=== PATIENT | female | born 1955 | race Caucasian/White ===

== ENCOUNTER 2020-08-11 11:51 | Emergency (ER) | payer OTHER, MEDICARE ==
[2020-08-11 13:22] LABS: PTT 31.4 sec (22.9-36.1); Prothrombin Time 13.5 sec (12.0-14.7)
[2020-08-11 13:23] LABS: #Basophils 0.1 thou/uL (0.0-0.2); #Eosinphils 0.1 thou/uL (0.0-0.7); #Lymphocytes 0.9 thou/uL (1.20-3.40); #Monocytes 0.3 thou/uL (0.11-0.59); #Neutrophils 4.4 thou/uL (1.40-6.50); %Eosinophils 1.4 % (0.0-10.0); %Lymphocytes 15.3 % (21.0-51.0); %Monocytes 5.7 % (0.0-10.0); %Neutrophils 76.7 % (42.0-75.0); Hemoglobin 7.9 g/dL (12.0-16.0); Mean Corpuscular HGB CONC 29.3 g/dL (32.0-36.0); Mean Corpuscular Hemoglobin 19.2 pg (27.0-31.0); Mean Corpuscular Volume 65.5 fL (78.0-98.0); Platelet Count 258 thou/uL (130-400); RBC Distribution Width 16.6 % (11.5-14.5); Red Blood Cell (RBC) Count 4.13 mill/uL (4.20-5.40); White Blood Cell (WBC) Count 5.8 thou/uL (4.8-10.8)
[2020-08-11 13:34] LABS: ALT (SGPT) 7 U/L (8-55); AST (SGOT) 17 U/L (5-34); Albumin 4.2 g/dL (3.4-4.8); Alkaline Phosphatase 97 U/L (40-110); Anion Gap 12 mmol/L (10-20); BUN (Urea Nitrogen) 22 mg/dL (9.8-20.1); Bilirubin, Total 0.4 mg/dL (0.2-1.2); Calc. Creatinine Clearance 0 mL/min (70-130); Calcium 9.2 mg/dL (7.8-10.44); Carbon Dioxide 25 mmol/L (23-31); Chloride 108 mmol/L (98-107); Estimated GFR-MDRD 66; Globulin 2.9 g/dL (2.4-3.5); Glucose 132 mg/dL (80-115); Potassium 4.8 mmol/L (3.5-5.1); Protein, Total 7.1 g/dL (6.0-8.3); Sodium 140 mmol/L (136-145)
[2020-08-11 13:49] LABS: Elliptocytes SLIGHT = 2-5 cells (100X) (0-1/hpf); Hypochromia SLIGHT = 6-15 cells (100X) (0-5/hpf); MDiff Complete? YES; Microcytosis MODERATE=15-30 cells (100X) (0-5/hpf); Ovalocytes SLIGHT = 2-5 cells (100X) (0-1/hpf); Platelet Morphology Comment Appears Adequate; Polychromasia SLIGHT = 2-3 cells (100X) (0-2/hpf); Schistocytes SLIGHT = 2-5 cells (100X) (0-1/hpf); Target Cells SLIGHT = 2-5 cells (100X) (0-1/hpf); Tear Drops SLIGHT = 2-5 cells (100X) (0-1/hpf)
== END 2020-08-11 17:18 | disposition home or self-care (01) ==
LOC: ERS 11:51
DX: D50.9 Iron deficiency anemia, unspecified (principal); Z79.899 Other long term (current) drug therapy
CPT/HCPCS: 36415; 80053; 85025; 85610; 85730; 86850; 86900; 86901; 99283

== ENCOUNTER 2022-12-02 15:25 | Observation (INO) | payer MEDICARE, OTHER ==
[2022-12-02] MEDS ORDERED: Morphine 4 MG/ML VIAL ONE (15:53)
[2022-12-02] MEDS ORDERED: Famotidine/PF 20 mg/2ml Vial ONE (15:53)
[2022-12-02 15:58] LABS: #Eosinphils 0.2 thou/uL (0.0-0.7); #Lymphocytes 1.6 thou/uL (1.20-3.40); #Monocytes 0.5 thou/uL (0.11-0.59); #Neutrophils 5.2 thou/uL (1.40-6.50); %Basophils 0.4 % (0.0-1.0); %Eosinophils 2.1 % (0.0-10.0); %Lymphocytes 21.5 % (21.0-51.0); %Monocytes 6.8 % (0.0-10.0); %Neutrophils 69.1 % (42.0-75.0); Hemoglobin 10.1 g/dL (12.0-16.0); Mean Corpuscular Hemoglobin 21.6 pg (27.0-31.0); Mean Corpuscular Volume 69.9 fl (78.0-98.0); Mean Platelet Volume 10.5 fL (7.4-10.4); Platelet Count 301 10x3/uL (130-400); RBC Distribution Width 16.3 % (11.5-14.5); Red Blood Cell (RBC) Count 4.68 mill/uL (4.20-5.40); White Blood Cell (WBC) Count 7.5 10x3/uL (4.8-10.8)
[2022-12-02 16:12] LABS: Hypochromia SLIGHT = 6-15 cells (100X) (0-5/hpf); MDiff Complete? YES; Microcytosis SLIGHT = 6-15 cells (100X) (0-5/hpf); Ovalocytes SLIGHT = 2-5 cells (100X) (0-1/hpf); Platelet Morphology Comment Appears Adequate; Polychromasia SLIGHT = 2-3 cells (100X) (0-2/hpf)
[2022-12-02 16:16] LABS: ALT (SGPT) Less than 7 U/L (8-55); AST (SGOT) 14 U/L (5-34); Albumin 3.4 g/dL (3.4-4.8); Alkaline Phosphatase 64 U/L (40-110); Anion Gap 15 mmol/L (10-20); BUN (Urea Nitrogen) 23 mg/dL (9.8-20.1); Bilirubin, Total 0.3 mg/dL (0.2-1.2); Calc. Creatinine Clearance 0 mL/min (70-130); Calcium 8.8 mg/dL (7.8-10.44); Carbon Dioxide 20 mmol/L (23-31); Chloride 107 mmol/L (98-107); Estimated GFR 88; Globulin 3.1 g/dL (2.4-3.5); Glucose 90 mg/dL (80-115); Lipase 30 U/L (8-78); Potassium 4.3 mmol/L (3.5-5.1); Protein, Total 6.5 g/dL (5.8-8.1); Sodium 138 mmol/L (136-145)
[2022-12-02] MEDS ORDERED: Nitroglycerin 0.4 MG TAB 1 EACH ONE (16:38)
[2022-12-02] MEDS ORDERED: Lidocaine Viscous Sol 2% 15 ml UD Cup ONE (16:52)
[2022-12-02] MEDS ORDERED: Mag-Al 1200 mg/1200 mg/30 ML UDCUP ONE (16:52)
[2022-12-02 17:38] LABS: SARS-CoV-2 NAA Rapid Test DETECTED (NotDetected)
[2022-12-02] MEDS ORDERED: Acetaminophen 325 MG TAB PO PRN (19:15)
[2022-12-02] MEDS ORDERED: Ondansetron PF 4 MG/2 ML Vial IVP PRN (19:15)
[2022-12-02] MEDS ORDERED: Ondansetron ODT 4 MG TAB SL PRN (19:15)
[2022-12-02 19:16] LABS: Troponin I Less than 0.010 ng/mL (< 0.028)
[2022-12-02 21:24] VITALS: BMI 27.2
[2022-12-02 22:20] LABS: Troponin I Less than 0.010 ng/mL (< 0.028)
[2022-12-03 06:10] LABS: Mean Corpuscular HGB CONC 30.3 g/dL (32.0-36.0); Mean Corpuscular Volume 69.4 fl (78.0-98.0); Mean Platelet Volume 10.9 fL (7.4-10.4); Platelet Count 274 10x3/uL (130-400); RBC Distribution Width 16.2 % (11.5-14.5); Red Blood Cell (RBC) Count 4.28 mill/uL (4.20-5.40); White Blood Cell (WBC) Count 7.3 10x3/uL (4.8-10.8)
[2022-12-03 06:29] LABS: #Basophils 0.1 thou/uL (0.0-0.2); #Eosinphils 0.2 thou/uL (0.0-0.7); #Lymphocytes 1.3 thou/uL (1.20-3.40); #Monocytes 0.4 thou/uL (0.11-0.59); #Neutrophils 5.3 thou/uL (1.40-6.50); %Basophils 0.9 % (0.0-1.0); %Eosinophils 2.5 % (0.0-10.0); %Neutrophils 72.6 % (42.0-75.0); Hypochromia SLIGHT = 6-15 cells (100X) (0-5/hpf); MDiff Complete? YES; Microcytosis SLIGHT = 6-15 cells (100X) (0-5/hpf)
[2022-12-03 06:38] LABS: Anion Gap 11 mmol/L (10-20); BUN (Urea Nitrogen) 21 mg/dL (9.8-20.1); Calc. Creatinine Clearance 87 mL/min (70-130); Calcium 8.7 mg/dL (7.8-10.44); Carbon Dioxide 25 mmol/L (23-31); Cardiac Risk 3.3 (Less than 4.5); Chloride 106 mmol/L (98-107); Cholesterol 233 mg/dl (< 200 Desired); Estimated GFR 95; Glucose 91 mg/dL (80-115); HDL Cholesterol 70 mg/dL (>60 Neg Risk); LDL Cholesterol, Calculated 141 mg/dL; Potassium 4.6 mmol/L (3.5-5.1); Sodium 137 mmol/L (136-145); Triglycerides 108 mg/dL (Less than 150)
[2022-12-03 08:55] VITALS: TEMP 98.1
[2022-12-03] MEDS ORDERED: Aspirin Chewable 81 MG TAB PO SCH (09:00)
[2022-12-03] MEDS ORDERED: Escitalopram Oxalate 10 mg Tablet PO SCH (09:00)
[2022-12-03 12:02] VITALS: BP 161/67
[2022-12-03] MEDS ORDERED: Non-Formulary Item 1 EACH (Polyethylene Glycol 3350 [Miralax] 119 GM Bottle) PO PRN (12:10)
[2022-12-03] MEDS ORDERED: RIZATRIPTAN BENZOATE 10 MG PO PRN (12:10)
[2022-12-03] MEDS ORDERED: Polyethylene Glycol 3350 17 GM Packet PO PRN (12:25)
[2022-12-03] MEDS ORDERED: SUMAtriptan Succinate 50 MG TAB PO PRN (12:28)
[2022-12-03] MEDS ORDERED: Non-Formulary Item 1 EACH (Buspirone Hcl [Buspirone Hcl] 15 MG Tablet) PO SCH (21:00)
[2022-12-03] MEDS ORDERED: Amitriptyline HCl 25 MG TAB PO SCH (21:00)
[2022-12-03] MEDS ORDERED: busPIRone HCl 5 MG TAB PO SCH (21:00)
[2022-12-04] MEDS ORDERED: Sertraline 25 MG TAB PO SCH (09:00)
[2022-12-04] MEDS ORDERED: ESTROPIPATE 1.5 MG PO SCH (09:00)
== END 2022-12-03 14:44 | disposition home or self-care (01) ==
LOC: ERS 15:25 → 2NO 18:02
PROVIDERS: ADMIT Family Medicine; ATTEND Family Medicine
DX: R07.89 Other chest pain (principal); U07.1 COVID-19; R06.09 Other forms of dyspnea; I08.8 Other rheumatic multiple valve diseases; Q21.10 Atrial septal defect, unspecified; I31.39 Other pericardial effusion (noninflammatory); R41.0 Disorientation, unspecified; R01.1 Cardiac murmur, unspecified; I11.9 Hypertensive heart disease without heart failure; E78.00 Pure hypercholesterolemia, unspecified; J45.909 Unspecified asthma, uncomplicated; Z79.899 Other long term (current) drug therapy; Z88.1 Allergy status to other antibiotic agents; Z88.8 Allergy status to other drugs, medicaments and biological substances
CPT/HCPCS: 0240U; 71045; 80048; 80053; 80061; 83690; 83880; 84484 ×2; 85025 ×2; 93005; 93306; 94760 ×2; 96374; 96375; 99285; 36415; G0378; J2270; S0028

== ENCOUNTER 2023-01-13 11:07 | Inpatient (IN) | payer MEDICARE ==
[2023-01-13 12:05] LABS: #Eosinphils 0.1 thou/uL (0.0-0.7); #Lymphocytes 1.1 thou/uL (1.20-3.40); #Monocytes 0.5 thou/uL (0.11-0.59); #Neutrophils 5.5 thou/uL (1.40-6.50); %Basophils 0.5 % (0.0-1.0); %Eosinophils 1.5 % (0.0-10.0); %Lymphocytes 14.8 % (21.0-51.0); %Monocytes 6.8 % (0.0-10.0); %Neutrophils 76.4 % (42.0-75.0); Hemoglobin 8.8 g/dL (12.0-16.0); Mean Corpuscular HGB CONC 31.1 g/dL (32.0-36.0); Mean Corpuscular Hemoglobin 21.5 pg (27.0-31.0); Mean Platelet Volume 10.2 fL (7.4-10.4); Platelet Count 290 10x3/uL (130-400); RBC Distribution Width 15.6 % (11.5-14.5); Red Blood Cell (RBC) Count 4.08 mill/uL (4.20-5.40); White Blood Cell (WBC) Count 7.2 10x3/uL (4.8-10.8)
[2023-01-13] MEDS ORDERED: Aspirin Chewable 81 MG TAB ONE (12:12)
[2023-01-13] MEDS ORDERED: Albuterol 200 PUFF (6.7GM INHALER) ONE (12:22)
[2023-01-13 12:29] LABS: ALT (SGPT) Less than 7 U/L (8-55); AST (SGOT) 12 U/L (5-34); Albumin 3.3 g/dL (3.4-4.8); Alkaline Phosphatase 67 U/L (40-110); Anion Gap 10 mmol/L (10-20); BUN (Urea Nitrogen) 20 mg/dL (9.8-20.1); Bilirubin, Total 0.3 mg/dL (0.2-1.2); Calc. Creatinine Clearance 0 mL/min (70-130); Calcium 8.7 mg/dL (7.8-10.44); Carbon Dioxide 25 mmol/L (23-31); Chloride 106 mmol/L (98-107); Estimated GFR 85; Glucose 97 mg/dL (80-115); Lipase 27 U/L (8-78); Potassium 4.8 mmol/L (3.5-5.1); Protein, Total 6.3 g/dL (5.8-8.1); Sodium 136 mmol/L (136-145)
[2023-01-13 14:46] LABS: Troponin I Less than 0.010 ng/mL (< 0.028)
[2023-01-13] MEDS ORDERED: Ondansetron ODT 4 MG TAB PO PRN (15:45)
[2023-01-13] MEDS ORDERED: Ondansetron PF 4 MG/2 ML Vial IVP PRN (15:45)
[2023-01-13] MEDS ORDERED: Acetaminophen 325 MG TAB PO PRN (15:45)
[2023-01-13] MEDS ORDERED: Nitroglycerin 0.4 MG TAB (25 Tab Bottle) SL PRN (15:46)
[2023-01-13 16:04] LABS: Bilirubin Negative (Negative); Blood, Urine Negative (Negative); Clarity Clear (Clear); Glucose, Urine (Dipstick) Normal (Negative); Ketone, Urine Negative (Negative); Leukocyte Negative Leu/uL (Negative); Nitrite Negative (Negative); Protein, Urine (Dipstick) Negative (Neg-Trace); Specific Gravity, Urine 1.012 (1.002-1.036); Urobilinogen Normal mg/dL (Less than 2)
[2023-01-13] MEDS ORDERED: Polyethylene Glycol 3350 17 GM Packet PO PRN (16:05)
[2023-01-13 16:30] VITALS: BMI 28.8
[2023-01-13 17:46] LABS: Troponin I Less than 0.010 ng/mL (< 0.028)
[2023-01-13] MEDS: busPIRone HCl 10 MG TAB PO SCH (20:52)
[2023-01-13] MEDS: Amitriptyline HCl 25 MG TAB PO SCH (20:53)
[2023-01-14 04:46] LABS: #Basophils 0.1 thou/uL (0.0-0.2); #Lymphocytes 1.2 thou/uL (1.20-3.40); #Monocytes 0.5 thou/uL (0.11-0.59); #Neutrophils 4.1 thou/uL (1.40-6.50); %Basophils 1.2 % (0.0-1.0); %Eosinophils 0.8 % (0.0-10.0); %Lymphocytes 20.3 % (21.0-51.0); %Monocytes 8.2 % (0.0-10.0); %Neutrophils 69.5 % (42.0-75.0); Hemoglobin 8.6 g/dL (12.0-16.0); Mean Corpuscular HGB CONC 30.3 g/dL (32.0-36.0); Mean Corpuscular Hemoglobin 20.7 pg (27.0-31.0); Mean Corpuscular Volume 68.4 fl (78.0-98.0); Mean Platelet Volume 9.7 fL (7.4-10.4); Platelet Count 267 10x3/uL (130-400); RBC Distribution Width 15.5 % (11.5-14.5); Red Blood Cell (RBC) Count 4.13 mill/uL (4.20-5.40); White Blood Cell (WBC) Count 5.8 10x3/uL (4.8-10.8)
[2023-01-14 05:10] LABS: Anion Gap 11 mmol/L (10-20); BUN (Urea Nitrogen) 17 mg/dL (9.8-20.1); Calc. Creatinine Clearance 88 mL/min (70-130); Calcium 8.6 mg/dL (7.8-10.44); Carbon Dioxide 22 mmol/L (23-31); Chloride 109 mmol/L (98-107); Estimated GFR 91; Glucose 104 mg/dL (80-115); Potassium 4.2 mmol/L (3.5-5.1); Sodium 138 mmol/L (136-145)
[2023-01-14] MEDS ORDERED: RIZATRIPTAN BENZOATE 10 MG PO PRN (07:56)
[2023-01-14] MEDS ORDERED: SUMAtriptan Succinate 50 MG TAB PO PRN (08:02)
[2023-01-14] MEDS: Escitalopram Oxalate 10 mg Tablet PO SCH (08:29)
[2023-01-14] MEDS: busPIRone HCl 10 MG TAB PO SCH ×2 (08:29→20:46)
[2023-01-14] MEDS: Estradiol 1 MG TAB PO SCH (08:29)
[2023-01-14] MEDS ORDERED: Communication Order-Pharmacy FS SCH (08:45)
[2023-01-14] MEDS ORDERED: Sertraline 25 MG TAB PO SCH (09:00)
[2023-01-14] MEDS ORDERED: GLYCOPYRROLATE/PF 0.2 MG/ML VIAL ONE (10:57)
[2023-01-14] MEDS ORDERED: PROPOFOL 20 ML ONE (10:57)
[2023-01-14] MEDS ORDERED: Glycopyrrolate 0.2 MG/ML 5 ML SYRINGE ONE (10:59)
[2023-01-14] MEDS ORDERED: PROPOFOL 200 MG/20 ML VIAL ONE (10:59)
[2023-01-14] MEDS: Amitriptyline HCl 25 MG TAB PO SCH (20:46)
[2023-01-15] MEDS: Estradiol 1 MG TAB PO SCH (06:17)
[2023-01-15] MEDS: busPIRone HCl 10 MG TAB PO SCH ×2 (06:17→21:08)
[2023-01-15] MEDS: Escitalopram Oxalate 10 mg Tablet PO SCH (06:17)
[2023-01-15] MEDS ORDERED: Lidocaine 1% (PF) 30 ML VIAL ONE (06:22)
[2023-01-15] MEDS ORDERED: fentaNYL 50 mcg/mL 1 mL Vial ONE (07:44)
[2023-01-15] MEDS ORDERED: Midazolam HCl 2 mg/2 ml Vial ONE (07:44)
[2023-01-15 08:15] LABS: Actual Bicarbonate (HCO3a) 21.5 mEq/L (22-28); CO2 Tension 35.8 mmHg (35.0-45.0); Calcium, Ionized (arterial) 1.14 mmol/L (1.12-1.30); Carboxyhemoglobin (COHb) 1.2 gm% (0.0-3.0); Hemoglobin (Hb) 9.1 g/dL (12.0-16.0); O2 Tension (PaO2), arterial 78.3 mmHg (> 80.0); Potassium - ABG Lab 3.86 mmol/L (3.70-5.30)
[2023-01-15 08:18] LABS: Puncture Site Arterial Line
[2023-01-15 08:29] LABS: Site RA; Site RV
[2023-01-15 08:30] LABS: Site IVC
[2023-01-15 08:31] LABS: Site PA
[2023-01-15] MEDS ORDERED: Iopamidol 370 76% 100 ML VIAL ONE (09:10)
[2023-01-15] MEDS: Amitriptyline HCl 25 MG TAB PO SCH (21:08)
[2023-01-16 05:22] LABS: Hemoglobin 8.2 g/dL (12.0-16.0); Mean Corpuscular HGB CONC 29.8 g/dL (32.0-36.0); Mean Corpuscular Hemoglobin 20.7 pg (27.0-31.0); Mean Corpuscular Volume 69.3 fl (78.0-98.0); Mean Platelet Volume 9.6 fL (7.4-10.4); Platelet Count 300 10x3/uL (130-400); RBC Distribution Width 15.7 % (11.5-14.5); Red Blood Cell (RBC) Count 3.97 mill/uL (4.20-5.40); White Blood Cell (WBC) Count 5.5 10x3/uL (4.8-10.8)
[2023-01-16 05:35] LABS: Anion Gap 9 mmol/L (10-20); BUN (Urea Nitrogen) 17 mg/dL (9.8-20.1); Calc. Creatinine Clearance 91 mL/min (70-130); Calcium 8.6 mg/dL (7.8-10.44); Carbon Dioxide 24 mmol/L (23-31); Chloride 111 mmol/L (98-107); Estimated GFR 94; Glucose 99 mg/dL (80-115); Potassium 4.6 mmol/L (3.5-5.1); Sodium 139 mmol/L (136-145)
[2023-01-16 08:11] VITALS: BP 119/58; TEMP 98.8
[2023-01-16] MEDS ORDERED: Ferrex 150 Plus (iron poly cmplx) PO SCH (09:00)
[2023-01-16] MEDS ORDERED: Cyanocobalamin (Vitamin B-12) 1,000 MCG TAB PO SCH (09:00)
[2023-01-16] MEDS: Escitalopram Oxalate 10 mg Tablet PO SCH (09:45)
[2023-01-16] MEDS: busPIRone HCl 10 MG TAB PO SCH (09:45)
[2023-01-16] MEDS: Estradiol 1 MG TAB PO SCH (09:45)
== END 2023-01-16 10:12 | disposition home or self-care (01) | DRG 287 ==
LOC: ERS 11:07 → 2SW 14:02 → OBSVTOIN 01-14 13:33 → 2SW 01-15 12:24
PROVIDERS: ADMIT Internal Medicine; ATTEND Internal Medicine
PROC: B24BZZ4 Ultrasonography of Heart with Aorta, Transesophageal (ICD-10-PCS; principal; 2023-01-14)
PROC: 4A023N8 Measurement of Cardiac Sampling and Pressure, Bilateral, Percutaneous Approach (ICD-10-PCS; 2023-01-15)
PROC: B2111ZZ Fluoroscopy of Multiple Coronary Arteries using Low Osmolar Contrast (ICD-10-PCS; 2023-01-15)
PROC: B2161ZZ Fluoroscopy of Right and Left Heart using Low Osmolar Contrast (ICD-10-PCS; 2023-01-15)
DX: Q21.10 Atrial septal defect, unspecified (principal); K51.90 Ulcerative colitis, unspecified, without complications; I70.0 Atherosclerosis of aorta; I08.1 Rheumatic disorders of both mitral and tricuspid valves; E78.5 Hyperlipidemia, unspecified; J45.909 Unspecified asthma, uncomplicated; I10 Essential (primary) hypertension; F41.9 Anxiety disorder, unspecified; F32.A Depression, unspecified; F03.90 Unspecified dementia, unspecified severity, without behavioral disturbance, psychotic disturbance, mood disturbance, and anxiety; G43.909 Migraine, unspecified, not intractable, without status migrainosus; I27.20 Pulmonary hypertension, unspecified; Z88.1 Allergy status to other antibiotic agents; Z88.8 Allergy status to other drugs, medicaments and biological substances; Z79.899 Other long term (current) drug therapy; Z79.82 Long term (current) use of aspirin; Z98.890 Other specified postprocedural states; Z90.49 Acquired absence of other specified parts of digestive tract; Z90.710 Acquired absence of both cervix and uterus; Z82.3 Family history of stroke; Z82.49 Family history of ischemic heart disease and other diseases of the circulatory system
CPT/HCPCS: 36415; 71045; 80048; 80053; 81003; 82805; 82810; 83690; 83880; 84484; 85025; 85027; 85379; 93005; 93306; 93312; 93460; 94664; 99152; 99153; C1751; C1769; C1894; G0378; J1650; J2001; J2250; J2704; J3010; J3490; Q9967

== ENCOUNTER 2023-02-08 10:15 | Inpatient (IN) | payer MEDICARE ==
[2023-02-08 12:50] LABS: Mean Corpuscular HGB CONC 27.5 g/dL (32.0-36.0); Mean Corpuscular Hemoglobin 20.1 pg (27.0-33.0); Mean Platelet Volume 10.6 fl (7.4-10.4); Platelet Count 386 10x3/uL (150-450); RBC Distribution Width 18.3 % (11.5-14.5); Red Blood Cell (RBC) Count 4.48 10x6/uL (3.90-5.03)
[2023-02-08 13:33] LABS: Anion Gap 13 mmol/L (10-20); BUN (Urea Nitrogen) 21 mg/dL (9.8-20.1); Calc. Creatinine Clearance 0 mL/min (70-130); Carbon Dioxide 24 mmol/L (23-31); Chloride 108 mmol/L (98-107); Estimated GFR 88; Glucose 90 mg/dL (80-115); Potassium 4.9 mmol/L (3.5-5.1); Sodium 140 mmol/L (136-145)
[2023-02-11] MEDS ORDERED: Albumin 5% 0 ML ONE (06:36)
[2023-02-11] MEDS ORDERED: PHENYLEPHRINE-NS 100 MCG/ML 10 ML SYRINGE ONE ×2 (06:36→07:56)
[2023-02-11] MEDS ORDERED: Midazolam HCl 2 mg/2 ml Vial ONE (06:55)
[2023-02-11] MEDS ORDERED: SUGAMMADEX SODIUM 200 MG/2 ML VIAL ONE (06:55)
[2023-02-11] MEDS ORDERED: Fentanyl 250 MCG/5 ML VIAL ONE (06:55)
[2023-02-11] MEDS ORDERED: Rocuronium Bromide 50 MG/5 ML VIAL ONE (06:55)
[2023-02-11] MEDS ORDERED: niCARdipine 25 MG/10 ML SDV ONE (06:55)
[2023-02-11] MEDS ORDERED: Insulin Regular 300 UNITS/3 ML VIAL ONE (06:55)
[2023-02-11] MEDS ORDERED: Aminocaproic Acid 5 GM/20 ML VIAL ONE ×2 (06:55→07:56)
[2023-02-11] MEDS ORDERED: Vasopressin 20 UNITS/ML VIAL ONE (06:55)
[2023-02-11] MEDS ORDERED: CEFAZOLIN 2 GM VIAL ONE (07:27)
[2023-02-11] MEDS ORDERED: Sodium Chloride 0.9% 100 ML ONE (07:27)
[2023-02-11] MEDS ORDERED: Rocuronium Bromide 10 MG/ML (10ML VIAL) ONE (07:56)
[2023-02-11] MEDS ORDERED: Protamine Sulfate 250 MG/25 ML VIAL ONE (07:56)
[2023-02-11] MEDS ORDERED: Calcium Chloride 1 GM/10 ML Abboject SYRINGE ONE (07:56)
[2023-02-11] MEDS ORDERED: Lidocaine 2% PF 100 mg/5 ml Syringe ONE (07:56)
[2023-02-11] MEDS ORDERED: PROPOFOL 200 MG/20 ML VIAL ONE (07:56)
[2023-02-11] MEDS ORDERED: Mannitol 12.5 GM/50 ML ONE (07:56)
[2023-02-11] MEDS ORDERED: Sodium Bicarb 50 MEQ/50 ML Abboject 8.4% SYRINGE ONE (07:56)
[2023-02-11] MEDS ORDERED: Magnesium 5 GM/10 ML VIAL ONE (07:56)
[2023-02-11] MEDS ORDERED: Thrombin 5000 UNITS/5 ML VIAL ONE (07:56)
[2023-02-11] MEDS ORDERED: Heparin 30,000 units/30 ml VIAL ONE (07:56)
[2023-02-11] MEDS ORDERED: Potassium Chloride 60 MEQ/30 ML VIAL ONE (07:56)
[2023-02-11] MEDS ORDERED: Lidocaine 1% PF 5 ML VIAL ONE (07:56)
[2023-02-11] MEDS ORDERED: hydrALAZINE 20 MG/ML VIAL SLOW IVP PRN (11:05)
[2023-02-11] MEDS ORDERED: Potassium Chloride 20 MEQ/100 ML PREMIX BAG IVPB PRN (11:05)
[2023-02-11] MEDS ORDERED: niCARdipine 25 MG in Sodium Chloride 0.9% 250 ML 250 ML IVPB PRN (11:05)
[2023-02-11] MEDS ORDERED: Guaifenesin DM 100-10/5 ML UDCUP PO PRN (11:05)
[2023-02-11] MEDS ORDERED: Nitroglycerin 50 MG/250 ML BOT 250 ML IVPB PRN (11:05)
[2023-02-11] MEDS ORDERED: DOPamine 400 MG/D5W 250 ML 250 ML IVPB PRN (11:05)
[2023-02-11] MEDS ORDERED: Hetastarch 6% 500 ML 500 ML IVPB PRN (11:05)
[2023-02-11] MEDS ORDERED: NOREPINEPHRINE 8 MG/250 ML-D5W 250 ML IVPB PRN (11:05)
[2023-02-11] MEDS ORDERED: Morphine 2 MG/ML VIAL SLOW IVP PRN (11:05)
[2023-02-11] MEDS ORDERED: Post-Op Insulin Drip Protocol IVPB PRN (11:05)
[2023-02-11] MEDS ORDERED: Bisacodyl 5 MG TAB PO PRN (11:05)
[2023-02-11] MEDS ORDERED: RIZATRIPTAN BENZOATE 10 MG PO PRN (11:05)
[2023-02-11] MEDS ORDERED: Bisacodyl 10 MG SUPP PR PRN (11:05)
[2023-02-11] MEDS ORDERED: Ipratropium/Albuterol 3 ML NEB NEB PRN (11:05)
[2023-02-11 11:06] LABS: Actual Bicarbonate (HCO3a) 20.2 mEq/L (22-28); Base Excess (BEa) -2.1 mEq/L (-2.0 to +3.0); CO2 Tension 27.1 mmHg (35.0-45.0); Calcium, Ionized (arterial) 1.07 mmol/L (1.12-1.30); Carboxyhemoglobin (COHb) 0.7 gm% (0.0-3.0); Hematocrit-ABG 31 % (36.0-47.0); Hemoglobin (Hb) 10.4 g/dL (12.0-16.0); O2 Tension (PaO2), arterial 273.1 mmHg (> 80.0); pH, Arterial 7.491 (7.35-7.45)
[2023-02-11 11:08] LABS: ALV-art Gradient 120.825 mmHg (0-20); Puncture Site Arterial Line
[2023-02-11] MEDS ORDERED: Nitroglycerin 50 MG/250 ML BOT 250 ML ONE (11:17)
[2023-02-11 11:26] LABS: #Basophils 0.1 thou/uL (0.0-0.2); #Eosinphils 0.1 thou/uL (0.0-0.7); #Lymphocytes 1.4 thou/uL (1.20-3.40); #Monocytes 0.8 thou/uL (0.11-0.59); #Neutrophils 10.6 thou/uL (1.40-6.50); %Basophils 0.5 % (0.0-1.0); %Eosinophils 0.5 % (0.0-10.0); %Lymphocytes 10.6 % (21.0-51.0); %Monocytes 6.2 % (0.0-10.0); %Neutrophils 82.2 % (42.0-75.0); Hemoglobin 9.8 g/dL (12.0-16.0); Mean Corpuscular HGB CONC 30.1 g/dL (32.0-36.0); Mean Corpuscular Hemoglobin 21.9 pg (27.0-31.0); Mean Corpuscular Volume 72.7 fl (78.0-98.0); Mean Platelet Volume 10.4 fL (7.4-10.4); Platelet Count 217 10x3/uL (130-400); RBC Distribution Width 17.8 % (11.5-14.5); Red Blood Cell (RBC) Count 4.45 mill/uL (4.20-5.40); White Blood Cell (WBC) Count 12.9 10x3/uL (4.8-10.8)
[2023-02-11] MEDS ORDERED: SUMAtriptan Succinate 50 MG TAB PO PRN (11:29)
[2023-02-11 11:40] LABS: INR-International Normal Ratio 1.3; PTT 29.2 sec (22.9-36.1); Prothrombin Time 16.2 sec (12.0-14.7)
[2023-02-11 11:44] LABS: Anion Gap 11 mmol/L (10-20); BUN (Urea Nitrogen) 17 mg/dL (9.8-20.1); Calc. Creatinine Clearance 96 mL/min (70-130); Calcium 7.6 mg/dL (7.8-10.44); Carbon Dioxide 20 mmol/L (23-31); Chloride 114 mmol/L (98-107); Estimated GFR 96; Glucose 159 mg/dL (80-115); Potassium 4.3 mmol/L (3.5-5.1); Sodium 141 mmol/L (136-145)
[2023-02-11] MEDS ORDERED: Insulin Regular 300 UNITS/3 ML VIAL SC PRN (11:45)
[2023-02-11] MEDS ORDERED: HUMULIN R 100 UNITS in Sodium Chloride 0.9% 100 ML IVPB SCH (11:45)
[2023-02-11] MEDS ORDERED: Dextrose 5% in Water 1,000 ML IV PRN (11:45)
[2023-02-11] MEDS ORDERED: Dextrose 50% Abboject 50 ML SYRINGE SLOW IVP PRN (11:45)
[2023-02-11] MEDS: Lactated Ringer's 1,000 ML IV SCH (12:14)
[2023-02-11] MEDS: Ketorolac Tromethamine 30 MG/ML VIAL IVP SCH ×2 (12:14→17:41)
[2023-02-11] MEDS: Ondansetron PF 4 MG/2 ML Vial IVP PRN (12:37)
[2023-02-11] MEDS: fentaNYL 50 mcg/mL 1 mL Vial SLOW IVP PRN ×2 (13:33→21:08)
[2023-02-11 15:05] LABS: Actual Bicarbonate (HCO3a) 19.3 mEq/L (22-28); Base Excess (BEa) -4.8 mEq/L (-2.0 to +3.0); CO2 Tension 32.5 mmHg (35.0-45.0); Calcium, Ionized (arterial) 1.05 mmol/L (1.12-1.30); Carboxyhemoglobin (COHb) 0.6 gm% (0.0-3.0); Hematocrit-ABG 31 % (36.0-47.0); Hemoglobin (Hb) 10.7 g/dL (12.0-16.0); O2 Tension (PaO2), arterial 247.5 mmHg (> 80.0); Potassium - ABG Lab 3.96 mmol/L (3.70-5.30); pH, Arterial 7.392 (7.35-7.45)
[2023-02-11 15:06] LABS: ALV-art Gradient -74.225 mmHg (0-20); Puncture Site Arterial Line
[2023-02-11] MEDS: CEFAZOLIN 2 GM in Sodium Chloride 0.9% 100 ML IVPB SCH (16:29)
[2023-02-11 16:43] LABS: Hemoglobin 10.2 g/dL (12.0-16.0)
[2023-02-11 17:04] LABS: Potassium 4.3 mmol/L (3.5-5.1)
[2023-02-11] MEDS: Famotidine/PF 20 mg/2ml Vial SLOW IVP SCH (21:08)
[2023-02-11] MEDS: busPIRone HCl 5 MG TAB PO SCH (21:08)
[2023-02-12] MEDS: Ketorolac Tromethamine 30 MG/ML VIAL IVP SCH ×5 (00:07→18:34)
[2023-02-12] MEDS: CEFAZOLIN 2 GM in Sodium Chloride 0.9% 100 ML IVPB SCH ×2 (00:07→08:13)
[2023-02-12] MEDS: Lactated Ringer's 1,000 ML IV SCH (00:08)
[2023-02-12] MEDS: fentaNYL 50 mcg/mL 1 mL Vial SLOW IVP PRN ×3 (04:40→16:45)
[2023-02-12 05:00] LABS: #Eosinphils 0.1 thou/uL (0.0-0.7); #Lymphocytes 0.7 thou/uL (1.20-3.40); #Monocytes 0.7 thou/uL (0.11-0.59); #Neutrophils 8.1 thou/uL (1.40-6.50); %Basophils 0.2 % (0.0-1.0); %Eosinophils 0.9 % (0.0-10.0); %Lymphocytes 7.3 % (21.0-51.0); %Monocytes 7.7 % (0.0-10.0); Hemoglobin 9.3 g/dL (12.0-16.0); Mean Corpuscular HGB CONC 31.1 g/dL (32.0-36.0); Mean Corpuscular Hemoglobin 23.2 pg (27.0-31.0); Mean Corpuscular Volume 74.6 fl (78.0-98.0); Mean Platelet Volume 10.9 fL (7.4-10.4); Platelet Count 191 10x3/uL (130-400); RBC Distribution Width 17.6 % (11.5-14.5); Red Blood Cell (RBC) Count 4.03 mill/uL (4.20-5.40); White Blood Cell (WBC) Count 9.7 10x3/uL (4.8-10.8)
[2023-02-12 05:16] LABS: Anion Gap 11 mmol/L (10-20); BUN (Urea Nitrogen) 16 mg/dL (9.8-20.1); Calc. Creatinine Clearance 104 mL/min (70-130); Calcium 7.5 mg/dL (7.8-10.44); Carbon Dioxide 22 mmol/L (23-31); Chloride 112 mmol/L (98-107); Estimated GFR 97; Glucose 129 mg/dL (80-115); Potassium 3.8 mmol/L (3.5-5.1); Sodium 141 mmol/L (136-145)
[2023-02-12] MEDS: busPIRone HCl 5 MG TAB PO SCH ×2 (08:14→20:05)
[2023-02-12] MEDS: Aspirin Chewable 81 MG TAB PO SCH (08:14)
[2023-02-12] MEDS: Escitalopram Oxalate 10 mg Tablet PO SCH (08:14)
[2023-02-12] MEDS: Famotidine/PF 20 mg/2ml Vial SLOW IVP SCH (08:14)
[2023-02-12] MEDS: Polyethylene Glycol 3350 17 GM Packet PO SCH (08:16)
[2023-02-12] MEDS: Mag-Al 1200 mg/1200 mg/30 ML UDCUP PO PRN ×2 (08:57→22:37)
[2023-02-12] MEDS: Metoprolol Tartrate 25 MG TAB PO SCH ×2 (09:57→20:05)
[2023-02-12] MEDS ORDERED: Insulin Glargine 30 UNITS/0.3 ML VIAL SC PRN (11:39)
[2023-02-12] MEDS ORDERED: traMADol HCl 50 MG TAB PO PRN (13:03)
[2023-02-12] MEDS ORDERED: Nitroglycerin 0.4 MG TAB (25 Tab Bottle) SL PRN (13:03)
[2023-02-12] MEDS ORDERED: Mineral Oil ENEMA PR PRN (13:03)
[2023-02-12] MEDS: Ondansetron PF 4 MG/2 ML Vial IVP PRN (22:38)
[2023-02-13] MEDS: fentaNYL 50 mcg/mL 1 mL Vial SLOW IVP PRN (00:05)
[2023-02-13] MEDS: Potassium Chloride 10 MEQ TAB PO SCH (08:53)
[2023-02-13] MEDS: Furosemide 40 MG TAB PO SCH (08:53)
[2023-02-13] MEDS: Escitalopram Oxalate 10 mg Tablet PO SCH (08:53)
[2023-02-13] MEDS: busPIRone HCl 5 MG TAB PO SCH ×2 (08:53→21:05)
[2023-02-13] MEDS: Polyethylene Glycol 3350 17 GM Packet PO SCH (08:53)
[2023-02-13] MEDS: Metoprolol Tartrate 25 MG TAB PO SCH ×2 (08:53→21:05)
[2023-02-13] MEDS: Aspirin Chewable 81 MG TAB PO SCH (08:53)
[2023-02-13] MEDS: Acetaminophen 325 MG TAB PO PRN (23:00)
[2023-02-14] MEDS: Aspirin Chewable 81 MG TAB PO SCH (08:47)
[2023-02-14] MEDS: Acetaminophen 325 MG TAB PO PRN ×2 (08:47→21:56)
[2023-02-14] MEDS: Furosemide 40 MG TAB PO SCH (08:54)
[2023-02-14] MEDS: busPIRone HCl 5 MG TAB PO SCH ×2 (08:54→20:55)
[2023-02-14] MEDS: Potassium Chloride 10 MEQ TAB PO SCH (08:54)
[2023-02-14] MEDS: Escitalopram Oxalate 10 mg Tablet PO SCH (08:55)
[2023-02-14] MEDS: Metoprolol Tartrate 25 MG TAB PO SCH ×2 (08:55→20:55)
[2023-02-14] MEDS: Polyethylene Glycol 3350 17 GM Packet PO SCH (08:55)
[2023-02-14] MEDS ORDERED: Digoxin 0.5 MG/2 ML AMP ONE (09:02)
[2023-02-14] MEDS ORDERED: Flecainide 50 MG TAB PO SCH (09:30)
[2023-02-14] MEDS ORDERED: Digoxin 0.5 MG/2 ML AMP SLOW IVP SCH ×2 (09:30→16:30)
[2023-02-14] MEDS ORDERED: Diltiazem HCl 125 MG, Admixture Fee 1 EACH in Sodium Chloride 0.9% 100 ML IVPB SCH (14:00)
[2023-02-15 06:20] VITALS: BMI 28.4
[2023-02-15] MEDS ORDERED: Digoxin 0.5 MG/2 ML AMP SLOW IVP SCH (09:00)
[2023-02-15] MEDS: busPIRone HCl 5 MG TAB PO SCH ×2 (10:01→20:06)
[2023-02-15] MEDS: Furosemide 40 MG TAB PO SCH (10:02)
[2023-02-15] MEDS: Potassium Chloride 10 MEQ TAB PO SCH (10:02)
[2023-02-15] MEDS: Polyethylene Glycol 3350 17 GM Packet PO SCH (10:02)
[2023-02-15] MEDS: Aspirin Chewable 81 MG TAB PO SCH (10:02)
[2023-02-15] MEDS: Escitalopram Oxalate 10 mg Tablet PO SCH (10:02)
[2023-02-16] MEDS: Escitalopram Oxalate 10 mg Tablet PO SCH (10:34)
[2023-02-16] MEDS: Aspirin Chewable 81 MG TAB PO SCH (10:34)
[2023-02-16] MEDS: busPIRone HCl 5 MG TAB PO SCH ×2 (10:34→22:24)
[2023-02-16] MEDS: Polyethylene Glycol 3350 17 GM Packet PO SCH (10:35)
[2023-02-17] MEDS: Acetaminophen 325 MG TAB PO PRN (00:56)
[2023-02-17] MEDS: Polyethylene Glycol 3350 17 GM Packet PO SCH (08:46)
[2023-02-17] MEDS: Escitalopram Oxalate 10 mg Tablet PO SCH (08:46)
[2023-02-17] MEDS: busPIRone HCl 5 MG TAB PO SCH ×2 (08:46→19:59)
[2023-02-17] MEDS: Aspirin Chewable 81 MG TAB PO SCH (08:46)
[2023-02-18 05:36] VITALS: TEMP 98.1
[2023-02-18] MEDS: Aspirin Chewable 81 MG TAB PO SCH (09:13)
[2023-02-18] MEDS: Escitalopram Oxalate 10 mg Tablet PO SCH (09:13)
[2023-02-18] MEDS: busPIRone HCl 5 MG TAB PO SCH (09:14)
[2023-02-18] MEDS: Polyethylene Glycol 3350 17 GM Packet PO SCH (09:15)
[2023-02-18 09:28] VITALS: BP 141/71
== END 2023-02-18 11:55 | disposition home or self-care (01) | DRG 274 ==
LOC: SURG A 02-11 05:53 → CCU 02-11 10:34 → IMCU/EMU 02-12 17:56 → 2NO 02-14 23:06
PROVIDERS: ADMIT Thoracic Surgery (Cardiothoracic Vascular Surgery); ATTEND Thoracic Surgery (Cardiothoracic Vascular Surgery)
PROC: 02L70CK Occlusion of Left Atrial Appendage with Extraluminal Device, Open Approach (ICD-10-PCS; principal; 2023-02-11)
PROC: 5A1221Z Performance of Cardiac Output, Continuous (ICD-10-PCS; 2023-02-11)
DX: Q21.10 Atrial septal defect, unspecified (principal); K51.90 Ulcerative colitis, unspecified, without complications; I10 Essential (primary) hypertension; E78.5 Hyperlipidemia, unspecified; F32.A Depression, unspecified; F03.90 Unspecified dementia, unspecified severity, without behavioral disturbance, psychotic disturbance, mood disturbance, and anxiety; G43.909 Migraine, unspecified, not intractable, without status migrainosus; I48.0 Paroxysmal atrial fibrillation; Z90.49 Acquired absence of other specified parts of digestive tract; Z88.1 Allergy status to other antibiotic agents; Z88.8 Allergy status to other drugs, medicaments and biological substances; Z79.899 Other long term (current) drug therapy
CPT/HCPCS: 36416; 36430; 71045; 80048; 82805; 85025; 85027; 85610; 85730; 86850; 86900; 86901; 93005; 93010; 93798; 94002; C1751; C1768; J1160; J1642; J1644; J1650; J1815; J1885; J2001; J2150; J2250; J2272; J2405; J2704; J2720; J3010; J3475; J3480; J3490; J7120; P9016; P9045; S0017; S0028

== ENCOUNTER 2024-11-09 07:50 | Inpatient (IN) | payer MEDICARE ==
[2024-11-09 08:08] LABS: #Basophils 0.06 10x3/uL (0.0-0.2); %Basophils 0.7 % (0.0-1.0); %Eosinophils 0.8 % (0.0-10.0); %Lymphocytes 17.3 % (21.0-51.0); %Monocytes 5.4 % (0.0-10.0); %Neutrophils 75.3 % (42.0-75.0); Hematocrit 26.1 % (36.0-47.0); Hemoglobin 7.9 g/dL (12.0-16.0); Mean Corpuscular HGB CONC 30.3 g/dL (32.0-36.0); Mean Corpuscular Hemoglobin 28.5 pg (27.0-31.0); Mean Corpuscular Volume 94.2 fL (78.0-98.0); Mean Platelet Volume 10.8 fL (7.4-10.4); Platelet Count 188 10x3/uL (130-400); RBC Distribution Width 13.5 % (11.5-14.5); Red Blood Cell (RBC) Count 2.77 mill/uL (4.20-5.40)
[2024-11-09 08:27] LABS: ALT (SGPT) 13 U/L (8-55); AST (SGOT) 16 U/L (5-34); Albumin 2.6 g/dL (3.4-4.8); Alkaline Phosphatase 38 U/L (40-110); Anion Gap 9 mmol/L (10-20); BUN (Urea Nitrogen) 27 mg/dL (9.8-20.1); Bilirubin, Total 0.2 mg/dL (0.2-1.2); Calc. Creatinine Clearance 0 mL/min (70-130); Calcium 7.9 mg/dL (7.8-10.44); Carbon Dioxide 24 mmol/L (23-31); Chloride 110 mmol/L (98-107); Estimated GFR 95; Globulin 2.3 g/dL (2.4-3.5); Glucose 152 mg/dL (80-115); Lipase 19 U/L (8-78); Potassium 3.9 mmol/L (3.5-5.1); Protein, Total 4.9 g/dL (5.8-8.1); Sodium 139 mmol/L (136-145)
[2024-11-09 08:32] LABS: Troponin I Less than 0.010 ng/mL (< 0.028)
[2024-11-09] MEDS ORDERED: Pantoprazole 40 MG VIAL ONE (08:57)
[2024-11-09] MEDS ORDERED: PROPOFOL 20 ML ONE (09:03)
[2024-11-09] MEDS ORDERED: Lidocaine 1% PF 5 ML VIAL ONE (09:03)
[2024-11-09] MEDS ORDERED: Dexamethasone 4 mg/ml Vial ONE (09:03)
[2024-11-09] MEDS ORDERED: Ondansetron PF 4 MG/2 ML Vial ONE ×2 (09:03→10:43)
[2024-11-09] MEDS ORDERED: SUCCINYLCHOLINE/SOD CL,ISO/PF 200 MG/10 ML SYRINGE FS ONE (09:03)
[2024-11-09] MEDS ORDERED: fentaNYL 50 mcg/mL 1 mL Vial ONE (09:03)
[2024-11-09] MEDS ORDERED: Lidocaine 2% 6 ML (Jelly) SYR ONE (09:10)
[2024-11-09 09:16] LABS: INR-International Normal Ratio 1.2; PTT 28.6 sec (22.9-36.1); Prothrombin Time 15.3 sec (12.0-14.7)
[2024-11-09] MEDS ORDERED: ePHEDrine Sulfate 50 MG/10 ML VIAL ONE (10:14)
[2024-11-09] MEDS ORDERED: PHENYLEPHRINE-NS 100 MCG/ML 10 ML SYRINGE ONE (10:19)
[2024-11-09] MEDS ORDERED: Glycopyrrolate 0.2 MG/ML 5 ML SYRINGE ONE (10:19)
[2024-11-09] MEDS ORDERED: Acetaminophen 325 MG TAB PO PRN (11:47)
[2024-11-09 15:46] VITALS: BMI 27.0
[2024-11-09] MEDS: Sodium Chloride 0.9% 1,000 ML IV SCH (15:47)
[2024-11-09 15:51] LABS: Hematocrit 27.2 % (36.0-47.0)
[2024-11-09 21:04] LABS: Hematocrit 25.4 % (36.0-47.0); Hemoglobin 7.9 g/dL (12.0-16.0)
[2024-11-09] MEDS: Acetaminophen/Codeine 30-300mg Tablet PO PRN (22:11)
[2024-11-09] MEDS: busPIRone HCl 10 MG TAB PO SCH (22:12)
[2024-11-09] MEDS: Pantoprazole 40 MG VIAL IVP SCH (22:12)
[2024-11-09] MEDS: Donepezil HCl 10 MG TAB PO SCH (22:12)
[2024-11-09] MEDS: Amitriptyline HCl 25 MG TAB PO SCH (22:12)
[2024-11-10 04:31] LABS: #Basophils Less than 0.03 10x3/uL (0.0-0.2); #Eosinophils Less than 0.03 10x3/uL (0.0-0.7); %Basophils 0.3 % (0.0-1.0); %Eosinophils 0.2 % (0.0-10.0); %Lymphocytes 14.6 % (21.0-51.0); %Monocytes 5.9 % (0.0-10.0); %Neutrophils 78.5 % (42.0-75.0); Hematocrit 23.6 % (36.0-47.0); Hemoglobin 7.4 g/dL (12.0-16.0); Mean Corpuscular HGB CONC 31.4 g/dL (32.0-36.0); Mean Corpuscular Hemoglobin 29.1 pg (27.0-31.0); Mean Corpuscular Volume 92.9 fL (78.0-98.0); Mean Platelet Volume 10.8 fL (7.4-10.4); Platelet Count 168 10x3/uL (130-400); RBC Distribution Width 13.9 % (11.5-14.5); Red Blood Cell (RBC) Count 2.54 mill/uL (4.20-5.40)
[2024-11-10 04:47] LABS: Anion Gap 10 mmol/L (10-20); BUN (Urea Nitrogen) 15 mg/dL (9.8-20.1); Calc. Creatinine Clearance 96 mL/min (70-130); Calcium 8.3 mg/dL (7.8-10.44); Carbon Dioxide 27 mmol/L (23-31); Chloride 112 mmol/L (98-107); Estimated GFR 97; Glucose 115 mg/dL (80-115); Potassium 4.5 mmol/L (3.5-5.1); Sodium 144 mmol/L (136-145)
[2024-11-10] MEDS: Atorvastatin Calcium 10 MG TAB PO SCH (08:46)
[2024-11-10] MEDS: Escitalopram Oxalate 10 mg Tablet PO SCH (08:47)
[2024-11-11 04:56] LABS: #Basophils 0.04 10x3/uL (0.0-0.2); %Basophils 0.8 % (0.0-1.0); %Eosinophils 2.1 % (0.0-10.0); %Lymphocytes 24.4 % (21.0-51.0); %Monocytes 6.2 % (0.0-10.0); %Neutrophils 65.5 % (42.0-75.0); Hematocrit 26.1 % (36.0-47.0); Hemoglobin 8.2 g/dL (12.0-16.0); Mean Corpuscular HGB CONC 31.4 g/dL (32.0-36.0); Mean Corpuscular Volume 89.1 fL (78.0-98.0); Mean Platelet Volume 10.5 fL (7.4-10.4); Platelet Count 157 10x3/uL (130-400); RBC Distribution Width 17.9 % (11.5-14.5); Red Blood Cell (RBC) Count 2.93 mill/uL (4.20-5.40)
[2024-11-11 05:05] LABS: Anion Gap 9 mmol/L (10-20); BUN (Urea Nitrogen) 13 mg/dL (9.8-20.1); Calc. Creatinine Clearance 98 mL/min (70-130); Carbon Dioxide 27 mmol/L (23-31); Chloride 111 mmol/L (98-107); Estimated GFR 97; Glucose 88 mg/dL (80-115); Potassium 3.9 mmol/L (3.5-5.1); Sodium 143 mmol/L (136-145)
[2024-11-11] MEDS: Melatonin 3 MG TAB PO PRN (21:25)
[2024-11-12 07:53] VITALS: BP 138/65; TEMP 97.8
[2024-11-12] MEDS: Metoprolol Succinate XL 50 MG ER.TAB PO SCH (08:14)
[2024-11-12] MEDS: pyridOXINE 50 MG (B6) TAB PO SCH (08:14)
[2024-11-12] MEDS: Ondansetron PF 4 MG/2 ML Vial IVP PRN (09:40)
== END 2024-11-12 11:04 | DRG 381 ==
LOC: ERS 07:50 → SDC 10:38 → 2NO 11:47
PROVIDERS: ADMIT Internal Medicine; ATTEND Hospitalist
PROC: 0W3P8ZZ Control Bleeding in Gastrointestinal Tract, Via Natural or Artificial Opening Endoscopic (ICD-10-PCS; principal; 2024-11-09)
PROC: 30233N1 Transfusion of Nonautologous Red Blood Cells into Peripheral Vein, Percutaneous Approach (ICD-10-PCS; 2024-11-10)
DX: K22.11 Ulcer of esophagus with bleeding (principal); D62 Acute posthemorrhagic anemia; K25.4 Chronic or unspecified gastric ulcer with hemorrhage; F32.A Depression, unspecified; E78.5 Hyperlipidemia, unspecified; I10 Essential (primary) hypertension; R55 Syncope and collapse; F03.90 Unspecified dementia, unspecified severity, without behavioral disturbance, psychotic disturbance, mood disturbance, and anxiety; J45.909 Unspecified asthma, uncomplicated; Z96.612 Presence of left artificial shoulder joint; Z88.1 Allergy status to other antibiotic agents; Z88.8 Allergy status to other drugs, medicaments and biological substances; Z90.710 Acquired absence of both cervix and uterus; Z98.890 Other specified postprocedural states; Z98.84 Bariatric surgery status
CPT/HCPCS: 36415; 36430; 80048; 80053; 83690; 84484; 85025; 85610; 85730; 86850; 86900; 86901; 93005; 96374; J1100; J2405; J2470; J2704; J3010; J7030; P9016